=== PATIENT | female | born 2000 | race Hispanic/Latino ===

== ENCOUNTER 2024-02-17 08:26 | Emergency (ER) | payer SELFPAY ==
[2024-02-17] MEDS ORDERED: Fluorescein Opthalmic Strip ONE (08:37)
[2024-02-17] MEDS ORDERED: Tetracaine 0.5% PF 4 ML BOT ONE (08:37)
[2024-02-17] MEDS ORDERED: Proparacaine 0.5% Opth 15 ML BOT ONE (08:48)
== END 2024-02-17 09:03 | disposition home or self-care (01) ==
LOC: CSHERS 08:26
DX: B30.9 Viral conjunctivitis, unspecified (principal)
CPT/HCPCS: 99282

== ENCOUNTER 2024-04-14 11:43 | Emergency (ER) | payer SELFPAY | END 2024-04-14 15:53 | disposition home or self-care (01) | LOC: CSHERS 11:43 | DX: J06.9 Acute upper respiratory infection, unspecified (principal); B97.89 Other viral agents as the cause of diseases classified elsewhere | CPT/HCPCS: 71045; 87428 ==

== ENCOUNTER 2025-01-24 17:16 | Emergency (ER) | payer OTHER, SELFPAY ==
[2025-01-24] MEDS ORDERED: Ketorolac Tromethamine 30 MG (1 mL) VIAL ONE (19:01)
== END 2025-01-24 20:12 | disposition home or self-care (01) ==
LOC: CSHERS 17:16
DX: J06.9 Acute upper respiratory infection, unspecified (principal); B97.89 Other viral agents as the cause of diseases classified elsewhere; Z55.6 Problems related to health literacy
CPT/HCPCS: 71046; 87428; 96372; J1885